=== PATIENT | male | born 1950 | race Caucasian/White ===

== ENCOUNTER → 2021-05-26 10:05 | Outpatient (CLI) | payer MEDICARE, SELFPAY ==
--- NOTE | ~2021-05-26 | US_ITS ---
US renal BI 05/26/2021 10:25 Procedure: Realtime transabdominal ultrasound of the kidneys and bladder. Indication: Chronic kidney disease Comparison: No prior studies for comparison. Findings: Renal echotexture is normal bilaterally without hydronephrosis, contour deforming mass or r enal calculus. The right kidney measures 11.6 cm and left kidney measures 11.7 cm. There are multiple bilateral renal cysts, largest on the right measuring 5.8 cm in largest on the left measuring 2.9 cm . Bladder within normal limits. Impression: 1: Bilateral renal cysts. Reviewed, dictated and finalized at location B. Impression: 1: Bilateral renal cysts.
== END ==
PROVIDERS: PCP Family Medicine; Visit Provider Internal Medicine Nephrology
DX: N18.32 Chronic kidney disease, stage 3b (principal); N28.1 Cyst of kidney, acquired
CPT/HCPCS: 76775

== ENCOUNTER 2023-01-12 18:34 | Emergency (ER) | payer MEDICARE, SELFPAY ==
--- NOTE | ~2023-01-12 | XR_ITS ---
XR knee RT min 4V 01/12/2023 19:03 Indication: Right knee pain Procedure: 4 views right knee Comparison: No prior studies for comparison. Findings: Moderate joint effusion. Mild patellofemoral compartment osteoarthritis. No fracture, sublu xation or dislocation. Prominent tibial tubercle. No foreign bodies. No acute fracture. Impression: 1: No acute fracture. 2: Moderate joint effusion. Reviewed, dictated and finalized at location A. Impression: 1: No acute fracture. 2: Moderate joint effusion.
--- NOTE | ~2023-01-12 | US_ITS ---
EXAMINATION:US venous doppler LE RT INDICATION:Right leg swelling TECHNIQUE: Multiple grayscale, color flow and Doppler images of the right lower extremity deep venous systems were obtained and reviewed. COMPARISON:No prior studies for comparison. FINDINGS: The common femoral, superficial femoral and popliteal veins demonstrate normal respiratory variation, augmentation and compressibility. Color flow is also seen within the posterior tibial, pe roneal, greater saphenous and profunda veins. IMPRESSION: 1: No lower extremity deep venous thrombosis. Reviewed, dictated and finalized at location A.
[2023-01-12 18:34] VITALS: BP 140/77; PULSE 74; RESP 18; TEMP 37; O2SAT 98
--- NOTE | 2023-01-12 18:46 | ED.LOWEXIN ---
HPI - Extremity Injury (Lower) General Chief Complaint: Extremity Injury, Lower <Darling Guevara PA-C - Last Filed: 01/12/23 18:52> Stated Complaint: knee pain <HERMELINDO Tarango Last Filed: 01/12/23 18:52> Time Seen by Provider: 01/12/23 20:21 <HERMELINDO Tarango Last Filed: 01/12/23 18:52> Source: patient <HERMELINDO Tarango Last Filed: 01/12/23 18:52> Mode of arrival: ambulatory <HERMELINDO Tarango Last Filed: 01/12/23 18:52> Limitations: no limitations <HERMELINDO Tarango Last Filed: 01/12/23 18:52> History of Present Illness HPI Narrative: Patient is a 72-year-old male, with PMH of CKD who sees Dr. Rowland, who presents to the ED with report of right lower extremity pain. Patient reports he developed pain in his right foot around 1 week ago. Pain was in his entire foot. He had difficulty walking due to the pain. Over the last 3 to 4 days, pain has seemed to extend into his right knee. He has had difficulty moving his knee, complains of pain, swelling, warmth to the knee. Denies any wounds, fevers. He denies known history of gout, but states he has had an elevated uric acid level in the past. <HERMELINDO Tarango Last Filed: 01/12/23 18:52> Related Data Home Medications: Home Medications Medication Instructions Recorded Confirmed nebivolol 5 mg tablet (Bystolic) 5 mg PO DAILY 06/22/19 12/23/22 nifedipine 90 mg tablet,extended 90 mg PO DAILY 06/22/19 12/23/22 release hydralazine 25 mg tablet 25 mg PO TID 07/06/22 12/23/22 hydrochlorothiazide 25 mg tablet 25 mg PO DAILY 07/06/22 12/23/22 <HERMELINDO Tarango Last Filed: 01/12/23 18:52> Allergies/Adverse Reactions: Allergies Allergy/AdvReac Type Severity Reaction Status Date / Time captopril Allergy Mild Unknown Verified 01/12/23 19:11 <Darling Guevara PA-C - Last Filed: 01/12/23 18:52> Review of Systems Review of Systems: CONSTITUTIONAL: Denies fever, chills, or sweats. SKIN: See HPI. MUSCULOSKELETAL: See HPI. NEUROLOGIC: Denies headache, numbness, or weakness. <Darling Guevara PA-C - Last Filed: 01/12/23 18:52> All systems reviewed & are unremarkable except as noted in HPI and below <Darling Guevara PA-C - Last Filed: 01/12/23 18:52> PMF Past Medical History Medical History: Medical History Elevated lipids Hypertension <Darling Guevara PA-C - Last Filed: 01/12/23 18:52> Family History Family History: Family History Mother Patient's mother is , Onset Age: 70 Family history of malignant neoplasm of ovary Mother , @ age 70 Patient's mother is Family history of malignant neoplasm of ovary <Darling Guevara PA-C - Last Filed: 01/12/23 18:52> Social History Social History: Social History Smoking status: Former smoker Alcohol intake: current Lack of Transportation: No Lack of Food: Never True Current Housing: I Have Housing Concerned About Future Housing: No Difficulty Paying Gas/Electric Bills: No Difficulty Paying for Meds: No Currently Unemployed: No Education: Trade/Vocational Certificate Difficulty w/ Childcare or Family Care: No Gender identity (if verbalized by the patient): Male <Darling Guevara PA-C - Last Filed: 01/12/23 18:52> Exam Narrative: GENERAL: Well appearing, obese with BMI of 34.3, non-toxic, in no acute distress. RESPIRATORY: Airway patent, respirations nonlabored. Clear to auscultation bilaterally. CARDIOVASCULAR: Regular rate and rhythm without murmurs, rubs, or gallops. Pedal pulses 2+ and equal bilaterally. MUSCULOSKELETAL: Limited flexion and extension range of motion of R knee due to pain. Palpable s
[2023-01-12 19:15] LABS: Basophils Absolute Auto 0.1 K/mm3 (0.0-0.1); Basophils Percent Auto 0.5 % (0.2-1.2); Eosinophils Absolute Auto 0.3 K/mm3 (0-0.3); Eosinophils Percent Auto 2.2 % (0-4.4); Hemoglobin 13.3 g/dL (14.0-18.0); Immature Granulocyte Absolute 0.05 K/mm3 (0.00-0.031); Immature Granulocyte Percent A 0.4 % (0-0.5); Lymphocytes Absolute Auto 2.27 K/mm3 (0.9-3.2); Mean Corpuscular HGB Conc 32.4 g/dl (32-36); Mean Corpuscular Hemoglobin 31.2 pg (26-34); Mean Corpuscular Volume 96.2 fl (80-100); Mean Platelet Volume 10.3 fl (7.4-10.4); Monocytes Percent Auto 8.6 % (2.6-8.5); Neutrophils Absolute Auto 7.7 K/mm3 (1.3-6.7); Neutrophils Percent Auto 68.3 % (45.5-73.1); Platelet Count Result 308 k/mm3 (150-375); Red Blood Count 4.26 M/mm3 (4.6-6.20); Red Cell Distribution Width 12.8 % (11.5-14.5); White Blood Count 11.3 K/mm3 (4.5-10.0)
[2023-01-12 19:24] LABS: Lactic Acid Reflex 1.1 mmol/L (0.7-2.0)
[2023-01-12 19:26] LABS: INR 1.2
[2023-01-12 19:27] LABS: Alanine Aminotransferase 16 U/L (6-50); Albumin Level 4.3 g/dL (3.5-5.1); Alkaline Phosphatase 59 U/L (38-126); Anion Gap 9 mmol/L (8-16); Aspartate Amino Transferase 20 U/L (17-59); Bilirubin,Total 0.6 mg/dL (0.2-1.3); Blood Urea Nitrogen 51 mg/dL (9-20); CRP 8.6 mg/dL (<1.0); Calcium 9.4 mg/dL (8.4-10.2); Carbon Dioxide 30 mmol/L (22-30); Chloride 100 mmol/L (98-107); Estimated CRCL calculation 23 ml/min; Estimated Glomerular Filt Rate 21; Glucose 121 mg/dL (65-110); Partial Thromboplastin Time 34.8 SECONDS (22.3-36.8); Potassium 3.8 mmol/L (3.4-5.0); Sodium 139 mmol/L (137-145)
[2023-01-12 19:41] LABS: Erythrocyte Sedimentation Rate 105 mm/hr (0-20)
[2023-01-12] MEDS: predniSONE 20 MG TABLET 40 MG PO (22:08)
[2023-01-12 22:16] VITALS: BP 138/74; PULSE 70; RESP 18; O2SAT 98
== END 2023-01-12 22:16 | disposition home or self-care (01) ==
PROVIDERS: Physician Assistant; Emergency Provider Physician Assistant; PCP Family Medicine
DX: M25.561 Pain in right knee (principal); I10 Essential (primary) hypertension; E78.5 Hyperlipidemia, unspecified
CPT/HCPCS: 36415; 73564; 80053; 83605; 85025; 85610; 85652; 85730; 86140; 93971; 99284; J7512

== ENCOUNTER 2023-02-10 11:55 | Outpatient (NON) | payer MEDICARE, SELFPAY ==
[2023-02-10 14:20] LABS: Appearance Synovial Fluid Hazy (Clear); Color Synovial Fluid Yellow (Colorless); Crystals Synovial Fluid None Seen (None Seen); Source Synovial Fluid Synovial fluid
[2023-02-10 14:21] LABS: Neutrophils Synovial Fluid 86 % (0-25); Nucleated Cell Synovial Fluid 5122 /uL (0-200); RBC Synovial Fluid < 2000 /uL (0-0)
[2023-02-10 14:22] LABS: Monocytes Synovial Fluid 13 %
[2023-02-10 14:23] LABS: Other Cells Synovial Fluid 1 %
== END 2023-02-10 11:56 | disposition home or self-care (01) ==
LOC: ANHLAB 11:59
PROVIDERS: PCP Family Medicine; Visit Provider Physician Assistant Surgical
DX: M25.461 Effusion, right knee (principal); M17.11 Unilateral primary osteoarthritis, right knee
CPT/HCPCS: 89051; 89060

== ENCOUNTER 2023-02-19 14:54 | Outpatient (NON) | payer MEDICARE, SELFPAY ==
[2023-02-19 16:24] LABS: Crystals Synovial Fluid None Seen (None Seen)
[2023-02-19 16:25] LABS: Appearance Synovial Fluid Hazy (Clear); Color Synovial Fluid Yellow (Colorless); Nucleated Cell Synovial Fluid 5362 /uL (0-200); Source Synovial Fluid Synovial fluid
[2023-02-19 16:26] LABS: Lymphocytes Synovial Fluid 1 %; Monocytes Synovial Fluid 16 %; Neutrophils Synovial Fluid 83 % (0-25); RBC Synovial Fluid < 2000 /uL (0-0)
== END 2023-02-19 14:55 | disposition home or self-care (01) ==
LOC: ANHLAB 14:59
PROVIDERS: PCP Family Medicine; Visit Provider Orthopaedic Surgery
DX: M25.461 Effusion, right knee (principal)
CPT/HCPCS: 87070; 87075; 87205; 89051; 89060

== ENCOUNTER 2023-03-02 09:30 | Outpatient (RCR) | payer MEDICARE, SELFPAY ==
[2023-01-19 09:43] VITALS: BMI 32.9
[2023-01-19 09:48] VITALS: BMI 32.9
[2023-02-02 09:13] VITALS: BMI 32.9; BMI 33.0
[2023-03-02 09:36] VITALS: BMI 33.0
== END 2023-04-06 12:46 | disposition home or self-care (01) ==
LOC: ANHDMC 09:30
PROVIDERS: PCP Family Medicine; Visit Provider Internal Medicine Nephrology
DX: N18.4 Chronic kidney disease, stage 4 (severe) (principal); I12.9 Hypertensive chronic kidney disease with stage 1 through stage 4 chronic kidney disease, or unspecified chronic kidney disease; Z71.3 Dietary counseling and surveillance
CPT/HCPCS: 97802; 97803

== ENCOUNTER 2023-05-27 11:00 | Outpatient (RCR) | payer MEDICARE, SELFPAY ==
[2023-05-27 11:03] VITALS: BMI 32.3
[2023-05-27 11:45] VITALS: BMI 32.3
== END 2023-08-16 09:40 | disposition home or self-care (01) ==
LOC: ANHDMC 11:00
PROVIDERS: PCP Family Medicine; Visit Provider Internal Medicine Nephrology
DX: N18.4 Chronic kidney disease, stage 4 (severe) (principal); I12.9 Hypertensive chronic kidney disease with stage 1 through stage 4 chronic kidney disease, or unspecified chronic kidney disease; Z71.3 Dietary counseling and surveillance
CPT/HCPCS: 97803

== ENCOUNTER 2024-09-06 09:37 | Outpatient (CLI) | payer MEDICARE, SELFPAY ==
--- NOTE | ~2024-09-06 | XR_ITS ---
EXAM/ PROCEDURE: XR thoracic spine 2V - 09/06/2024 9:45 CDT HISTORY: 73 years old Male with Pain in thoracic spine Pain in thoracic spine COMPARISON: None available TECHNIQUE: Three view(s) FINDINGS/ IMPRESSION: There are no fractures or dislocations.Multilevel degenerative changes are seen. Visualized portion o f lungs are clear. Reviewed, dictated and finalized at location A.
--- NOTE | ~2024-09-06 | XR_ITS ---
EXAM/ PROCEDURE: XR lumbar spine min 4V - 09/06/2024 9:45 CDT HISTORY: 73 years old Male with Lbp COMPARISON: None available TECHNIQUE: Three view(s) FINDINGS/ IMPRESSION: There are no fractures or dislocations.Multilevel degenerative changes are seen. Diffuse etiopathic s keletal hyperostosis seen. If there is clinical concern for radiculopathy, noncontrast outpatient MRI of the lumbosacral spine c an be performed for further evaluation. Reviewed, dictated and finalized at location A.
== END 2024-09-06 09:38 | disposition home or self-care (01) ==
PROVIDERS: PCP Family Medicine
DX: M54.6 Pain in thoracic spine (principal); M54.50 Low back pain, unspecified
CPT/HCPCS: 72070; 72110

== ENCOUNTER 2024-11-28 09:34 | Outpatient (CLI) | payer MEDICARE, SELFPAY ==
--- NOTE | ~2024-11-28 | XR_ITS ---
EXAMINATION: XR shoulder LT min 2V, 11/28/2024 9:50 CDT HISTORY: Pain in L shoulder COMPARISON: No comparisons available. Findings: No acute fracture or malalignment. No significant degenerative changes. Soft tissues unremarkable. Impression: No acute fracture or malalignment. Reviewed, dictated and finalized at location A. Impression: No acute fracture or malalignment.
== END 2024-11-28 09:35 | disposition home or self-care (01) ==
DX: M25.512 Pain in left shoulder (principal)
CPT/HCPCS: 73030